=== PATIENT | male | born 1990 | race African-American/Black ===

== ENCOUNTER 2018-05-03 14:40 | Emergency (ER) | payer MEDICAID ==
[~2018-05-03] VITALS: Ht 180.3 cm; Wt 61.2 kg
[2018-05-03 14:47] VITALS: BP 140/86
== END 2018-05-03 15:33 | disposition left against medical advice (07) ==
LOC: ER 14:40
DX: F41.9 Anxiety disorder, unspecified (principal); Z53.21 Procedure and treatment not carried out due to patient leaving prior to being seen by health care provider